=== PATIENT | female | born 1965 | race Caucasian/White ===

== ENCOUNTER 2016-11-06 10:11 | Day surgery (SDC) | payer MEDICAID ==
[2016-02-18 22:55] VITALS: BMI 29.0
[2016-11-06] MEDS ORDERED: Lactated Ringer's 500 ML IV ONE (10:23)
[2016-11-06] MEDS ORDERED: Propofol 10 mg/ml Inj (20 ML) ONE (12:19)
[2016-11-06 12:47] VITALS: TEMP 97
[2016-11-06 12:56] VITALS: BP 125/76; PULSE 67; RESP 14; O2SAT 97
== END 2016-11-06 12:59 | disposition home or self-care (01) ==
LOC: H.ENDO 10:11
PROVIDERS: ATTEND Internal Medicine Gastroenterology
DX: K21.9 Gastro-esophageal reflux disease without esophagitis (principal); K22.8 Other specified diseases of esophagus; K31.9 Disease of stomach and duodenum, unspecified; R12 Heartburn; R10.13 Epigastric pain

== ENCOUNTER 2016-11-20 09:26 | Day surgery (SDC) | payer MEDICAID ==
[2016-11-20] MEDS ORDERED: Propofol 10 mg/ml Inj (20 ML) ONE (10:04)
[2016-11-20] MEDS ORDERED: Lactated Ringer's 500 ML IV ONE (10:08)
[2016-11-20 12:17] VITALS: BP 125/68; PULSE 62; RESP 18; TEMP 97; O2SAT 99
== END 2016-11-20 12:39 | disposition home or self-care (01) ==
LOC: H.ENDO 09:26 → MERGE 09:26 → H.ENDO 12:39
PROVIDERS: ATTEND Internal Medicine Gastroenterology
DX: D12.7 Benign neoplasm of rectosigmoid junction (principal); D12.0 Benign neoplasm of cecum; Z12.11 Encounter for screening for malignant neoplasm of colon; K64.8 Other hemorrhoids